=== PATIENT | male | born 1945 | race Two or more races ===

== ENCOUNTER 2018-07-16 10:00 | Inpatient (IN) | payer OTHER, BC ==
[~2018-07-16] VITALS: Ht 165.1 cm; Wt 72.1 kg
[2018-07-16] MEDS ORDERED: LIPITOR20 MG PO (12:08)
[2018-07-16] MEDS ORDERED: ASA81 MG PO (12:08)
[2018-07-16] MEDS ORDERED: LISINOPRIL20 MG PO (12:08)
[2018-10-01] MEDS ORDERED: NORVASC5 MG PO (17:23)
[2018-10-23] MEDS ORDERED: COLACE100 MG PO (13:16)
[2018-10-23] MEDS ORDERED: GABAPENTIN800 MG PO (13:17)
[2018-10-23] MEDS ORDERED: AMOX-CLAV 875-1 EACH PO (13:18)
[2018-10-23] MEDS ORDERED: CLONAZEPAM1 MG PO (13:19)
[2018-10-23] MEDS ORDERED: PERCOCET 5-3251 EACH PO (13:19)
== END 2018-10-24 17:43 | disposition home or self-care (01) | DRG 455 ==
LOC: EDUNIT# 10:00 → SURH 07-23 10:00 → O/R 10-23 05:45 → SURH 10-23 10:00 → SURG 10-23 14:48 → SURH 10-23 16:45 → SURG 10-24 17:43
PROVIDERS: Orthopaedic Surgery Orthopaedic Surgery of the Spine
PROC: 0SG0071 Fusion of Lumbar Vertebral Joint with Autologous Tissue Substitute, Posterior Approach, Posterior Column, Open Approach (ICD-10-PCS; 2018-10-23)
PROC: 0ST20ZZ Resection of Lumbar Vertebral Disc, Open Approach (ICD-10-PCS; 2018-10-23)
PROC: 0SG00AJ Fusion of Lumbar Vertebral Joint with Interbody Fusion Device, Posterior Approach, Anterior Column, Open Approach (ICD-10-PCS; 2018-10-23)
PROC: 07DS3ZZ Extraction of Vertebral Bone Marrow, Percutaneous Approach (ICD-10-PCS; 2018-10-23)
PROC: 4A12X4Z Monitoring of Cardiac Electrical Activity, External Approach (ICD-10-PCS; 2018-10-23)
PROC: 0SG00A0 Fusion of Lumbar Vertebral Joint with Interbody Fusion Device, Anterior Approach, Anterior Column, Open Approach (ICD-10-PCS; principal; 2018-10-23 16:45)
DX: M47.26 Other spondylosis with radiculopathy, lumbar region (principal); M51.16 Intervertebral disc disorders with radiculopathy, lumbar region; M48.061 Spinal stenosis, lumbar region without neurogenic claudication; I10 Essential (primary) hypertension